=== PATIENT | female | born 1960 | race Caucasian/White ===

== ENCOUNTER 2020-02-26 08:26 | Emergency (ER) | payer MEDICAID ==
[~2020-02-26] VITALS: Ht 170.2 cm; Wt 72.7 kg
[~2020-02-26 08:26] MED LIST: NO HOME MEDS
[2020-02-26] MEDS ORDERED: thiamine 100mg tablet PO ONE (08:45)
[2020-02-26] MEDS ORDERED: magnesium oxide 400mg tablet PO ONE (08:45)
[2020-02-26] MEDS ORDERED: normal saline 1000ML IV soln IVB ONE (08:45)
[2020-02-26] MEDS ORDERED: acetaminophen 325mg tablet PO ONE (08:45)
[2020-02-26] MEDS ORDERED: phenobarbital inj 260 MG in normal saline 100ml IV soln 100 ML IV ONE (08:45)
[2020-02-26 09:01] LABS: BASOPHILS % (AUTO) 0.5 % (0-1); EOSINOPHILS # (AUTO) 0.1 X10'3 (0-0.9); EOSINOPHILS % (AUTO) 0.8 % (0-6); HEMOGLOBIN 12.6 g/dl (12.0-16.0); LYMPHOCYTES # (AUTO) 1.7 X10'3 (1.1-4.8); LYMPHOCYTES % (AUTO) 26.2 % (21-51); MEAN CORPUSCULAR HEMOGLOBIN 36.4 PG (27.0-31.0); MEAN CORPUSCULAR HGB CONC 34.1 g/dL (33.0-36.5); MEAN CORPUSCULAR VOLUME 106.9 FL (78-98); MEAN PLATELET VOLUME 8.9 FL (7.4-10.4); MONOCYTES # (AUTO) 0.7 X10'3 (0-0.9); MONOCYTES % (AUTO) 10.1 % (2-12); NEUTROPHILS # (AUTO) 4.1 X10'3 (1.8-7.7); NEUTROPHILS % (AUTO) 62.4 % (42-75); PLATELET COUNT 136 X10'3 (140-440); RED BLOOD COUNT 3.46 X10'6 (4.20-5.60); WHITE BLOOD COUNT 6.5 X10'3 (4.5-11.0)
[2020-02-26 09:07] LABS: ANION GAP 17 (8-16); BLOOD UREA NITROGEN 14 MG/DL (7-18); BUN/CREATININE RATIO 17.1 (6.6-38.0); CHLORIDE 96 MMOL/L (99-107); CREATININE 0.82 MG/DL (0.40-0.90); GLUCOSE 145 MG/DL (70-104); SODIUM 134 MMOL/L (135-145); TOTAL CARBON DIOXIDE 21.5 MMOL/L (24-32)
[2020-02-26 09:08] LABS: ALANINE AMINOTRANSFERASE 29 U/L (12-78); ALBUMIN 3.9 G/DL (3.4-5.0); ALBUMIN/GLOBULIN RATIO 1.1 (1.1-1.5); ALKALINE PHOSPHATASE 97 IU/L (46-116); ASPARTATE AMINO TRANSFERASE 62 U/L (10-37); BILIRUBIN,TOTAL 1.6 MG/DL (0.1-1.0); CALCIUM 8.5 MG/DL (8.5-10.1); ETHANOL < 0.010 GM/DL (0.0-0.010); TOTAL PROTEIN 7.6 G/DL (6.4-8.2); eGFR 72 ML/MIN
[2020-02-26 09:20] LABS: MAGNESIUM 0.7 MG/DL (1.5-2.4); POTASSIUM 2.8 MMOL/L (3.5-5.1)
[2020-02-26] MEDS ORDERED: phenobarbital inj 130 MG in normal saline 100ml IV soln 100 ML IV ONE (09:30)
[2020-02-26] MEDS ORDERED: potassium Cl 20 mEq SR tablet PO ONE (09:30)
[2020-02-26] MEDS: magnesium 2GM in 50ml NS 50 ML IV SCH ×2 (09:59→11:21)
[2020-02-26] MEDS: potassium Cl 10 mEq/100mL bag IV SCH ×2 (10:00→11:16)
[2020-02-26] MEDS ORDERED: ondansetron/PF 4mg/2ml inj IV ONE (10:20)
[2020-02-26] MEDS ORDERED: morphine 4 MG/ML inj SYRINge IV ONE (10:20)
--- NOTE | 2020-02-26 11:26 | NUR ---
Scanner in room not working. 2 patient identifiers and 2nd nurse, ZOEY Busch verified medications of Potassium and Magnesium.
[2020-02-26 13:45] VITALS: BP 158/98
== END 2020-02-26 13:47 | disposition home or self-care (01) ==
LOC: ER 08:26
DX: S01.512A Laceration without foreign body of oral cavity, initial encounter (principal); M25.512 Pain in left shoulder; F10.239 Alcohol dependence with withdrawal, unspecified; E87.6 Hypokalemia; R41.0 Disorientation, unspecified; E83.42 Hypomagnesemia; X58.XXXA Exposure to other specified factors, initial encounter; Y93.89 Activity, other specified; Y92.89 Other specified places as the place of occurrence of the external cause; Y99.8 Other external cause status; Y90.0 Blood alcohol level of less than 20 mg/100 ml
CPT/HCPCS: 36415; 70450; 73030; 80053; 80320; 83735; 85025; 93005; 96365; 96366; 96367; 96368; 96375; 99285; J2270; J2405; J2560; J3475; J3480; J7030

== ENCOUNTER 2020-11-18 15:13 | Emergency (ER) | payer MEDICAID, OTHER ==
[~2020-11-18] VITALS: Ht 165.1 cm; Wt 64.0 kg
[2020-11-18 15:17] VITALS: BP 140/74
[2020-11-18] MEDS ORDERED: HYDROcodone/acetaminophen 5mg/325mg tablet PO ONE (15:40)
[2020-11-18] MEDS ORDERED: ondansetron 4mg rapidly disintigrating tab PO ONE (15:40)
[2020-11-18] MEDS ORDERED: traMADol 50MG tablet PO ONE (16:00)
[2020-11-18] MEDS ORDERED: TRAM50TA2 PO (16:07)
== END 2020-11-18 16:24 | disposition home or self-care (01) ==
LOC: ER 15:14
DX: S42.294A Other nondisplaced fracture of upper end of right humerus, initial encounter for closed fracture (principal); M25.511 Pain in right shoulder; Z72.89 Other problems related to lifestyle; Z98.890 Other specified postprocedural states; Z79.899 Other long term (current) drug therapy; W19.XXXA Unspecified fall, initial encounter; Y93.89 Activity, other specified; Y92.89 Other specified places as the place of occurrence of the external cause; Y99.8 Other external cause status
CPT/HCPCS: 73030; 99283

== ENCOUNTER 2022-03-16 09:09 | Inpatient (IN) | payer MEDICAID, OTHER ==
[~2022-03-16] VITALS: Ht 170.2 cm; Wt 77.3 kg
[2022-03-16 10:07] LABS: BASOPHILS % (AUTO) 0.4 % (0-1); EOSINOPHILS # (AUTO) 0.1 X10'3 (0-0.9); EOSINOPHILS % (AUTO) 0.5 % (0-6); HEMATOCRIT 27.9 % (35.0-45.0); HEMOGLOBIN 9.4 g/dl (12.0-16.0); LYMPHOCYTES # (AUTO) 1.8 X10'3 (1.1-4.8); LYMPHOCYTES % (AUTO) 18.1 % (21-51); MEAN CORPUSCULAR HEMOGLOBIN 37.8 PG (27.0-31.0); MEAN CORPUSCULAR HGB CONC 33.8 g/dL (33.0-36.5); MONOCYTES # (AUTO) 0.5 X10'3 (0-0.9); MONOCYTES % (AUTO) 4.7 % (2-12); NEUTROPHILS # (AUTO) 7.7 X10'3 (1.8-7.7); NEUTROPHILS % (AUTO) 76.3 % (42-75); PLATELET COUNT 222 X10'3 (140-440); RED BLOOD COUNT 2.49 X10'6 (4.20-5.60); WHITE BLOOD COUNT 10.1 X10'3 (4.5-11.0)
[2022-03-16 10:30] LABS: ANISOCYTOSIS 2+; PLATELET ESTIMATE NORMAL
[2022-03-16 10:38] LABS: ALANINE AMINOTRANSFERASE 13 U/L (12-78); ALBUMIN 2.9 G/DL (3.4-5.0); ALBUMIN/GLOBULIN RATIO 0.8 (1.1-1.5); ALKALINE PHOSPHATASE 144 IU/L (46-116); ANION GAP 12 (8-16); ASPARTATE AMINO TRANSFERASE 30 U/L (10-37); BILIRUBIN,TOTAL 0.9 MG/DL (0.1-1.0); BLOOD UREA NITROGEN 13 MG/DL (7-18); BUN/CREATININE RATIO 17.8 (6.6-38.0); CALCIUM 8.1 MG/DL (8.5-10.1); CHLORIDE 98 MMOL/L (99-107); CREATININE 0.73 MG/DL (0.40-0.90); GLUCOSE 105 MG/DL (70-104); LIPASE 65 U/L (73-393); SODIUM 134 MMOL/L (135-145); TOTAL CARBON DIOXIDE 24.4 MMOL/L (24-32); TOTAL PROTEIN 6.5 G/DL (6.4-8.2); eGFR 82 ML/MIN
[2022-03-16] MEDS ORDERED: normal saline 1000ml 1,000 ML IV ONE (10:50)
[2022-03-16] MEDS ORDERED: LORazepam 2 mg/ml vial IV ONE (10:50)
[2022-03-16] MEDS ORDERED: normal saline 1000ML IV soln IVB ONE ×2 (10:50→14:05)
[2022-03-16] MEDS ORDERED: pantoprazole 40 MG vial IV ONE ×2 (10:50→14:05)
[2022-03-16] MEDS ORDERED: potassium CL 10mEq/100ml bag 100 ML IV ONE ×2 (10:50→14:05)
[2022-03-16] MEDS ORDERED: magnesium 2GM in 50ml NS 50 ML IV ONE ×2 (10:50→14:05)
[2022-03-16 11:05] LABS: MAGNESIUM 1.3 MG/DL (1.5-2.4)
[2022-03-16] MEDS: pantoprazole 40MG/NS 100ML BAG 100 ML IV SCH ×2 (12:25→20:54)
[2022-03-16 14:12] LABS: CLARITY,URINE SLIGHTLY CLOUDY (Clear); COLOR,URINE YELLOW (Yellow); GLUCOSE, URINE NEGATIVE (Neg); KETONES,URINE TRACE mg/dl (Neg); LEUKOCYTE ESTERASE ,URINE SMALL (Neg); NITRITES, URINE NEGATIVE (Neg); OCCULT BLOOD,URINE NEGATIVE (Neg); PROTEIN,URINE NEGATIVE (Neg); UA COLLECTION TYPE NON-SPECIFIED
[2022-03-16 14:15] LABS: URINE HCG NEGATIVE (NEG)
[2022-03-16 14:27] LABS: ETHANOL 0.061 GM/DL (0.0-0.010)
[2022-03-16 14:30] LABS: AMORPHOUS URATES 2+; BACTERIA,URINE 3+ /HPF (Neg); RBC,URINE 0-2 /HPF (0-2); SQUAMOUS EPITHELIAL CELL,UR FEW /LPF (FEW); WBC,URINE 0-4 /HPF (0-4)
[2022-03-16] MEDS ORDERED: magnesium hydroxide 30ml (MOM) UD suspension PO PRN (14:30)
[2022-03-16] MEDS ORDERED: magnesium 4gm in 100ml NS 100 ML IV PRN (14:30)
[2022-03-16] MEDS ORDERED: mag hydrox/Alum hydrox/simeth 30ml oral suspension PO PRN (14:30)
[2022-03-16] MEDS ORDERED: ondansetron/PF 4mg/2ml inj IV PRN (14:30)
[2022-03-16] MEDS ORDERED: haloperidol lactate 5mg/ml inj IM PRN (14:30)
[2022-03-16] MEDS ORDERED: magnesium Cl slow-release 64mg tablet PO PRN (14:30)
[2022-03-16] MEDS ORDERED: haloperidol 5mg tablet PO PRN (14:30)
[2022-03-16] MEDS ORDERED: magnesium 2GM in 50ml NS 50 ML IV PRN (14:30)
[2022-03-16] MEDS ORDERED: LORazepam 2 mg/ml vial IV PRN (14:30)
[2022-03-16] MEDS ORDERED: POTASSIUM BICARB 20meq eff tab 20 MEQ TABLET.EFF PO PRN (14:30)
[2022-03-16] MEDS ORDERED: potassium CL 10mEq/100ml bag 100 ML IV PRN (14:30)
[2022-03-16] MEDS ORDERED: dextrose 50%-water 50ml dispensing syringe IV PRN (14:30)
[2022-03-16] MEDS: normal saline 1000ml 1,000 ML IV SCH ×2 (15:26→20:50)
[2022-03-16 15:39] LABS: MAGNESIUM 2.2 MG/DL (1.5-2.4)
[2022-03-16] MEDS: cefTRIAXone 1g/NS 100ml IVPB 100 ML IV SCH (16:11)
[2022-03-16 18:23] LABS: URINE AMPHETAMINE SCREEN NEGATIVE (Neg); URINE BARBITUATE SCREEN NEGATIVE (Neg); URINE BENZODIAZEPINES SCREEN NEGATIVE (Neg); URINE CANNABINOID SCREEN NEGATIVE (Neg); URINE COCAINE SCREEN NEGATIVE (Neg); URINE METHADONE SCREEN NEGATIVE (Neg); URINE OPIATE SCREEN NEGATIVE (Neg); URINE PHENCYCLIDINE SCREEN NEGATIVE (Neg)
[2022-03-16] MEDS: K and/or MAG REPLACEMENT MC SCH (20:00)
[2022-03-16] MEDS: POTASSIUM BICARB 20meq eff tab 20 MEQ TABLET.EFF PO PRN (20:28)
[2022-03-16] MEDS: docusate sod 100mg capsule PO SCH (20:28)
--- NOTE | 2022-03-16 20:45 | NUR ---
Received report from Maribell GREER from ED. Patient came up to floor via wheelchair and able to transfer into bed. Bed placed in locked & low position, call light within reach.
[2022-03-16 20:50] VITALS: BP 121/90
[2022-03-16] MEDS: thiamine 100mg/ml 2ml inj. IV SCH (20:50)
[2022-03-16 22:00] VITALS: BP 97/58
[2022-03-17] MEDS: POTASSIUM BICARB 20meq eff tab 20 MEQ TABLET.EFF PO PRN ×2 (00:08→03:41)
--- NOTE | 2022-03-17 06:20 | NUR ---
Report given to Jefry GREER
--- NOTE | 2022-03-17 06:22 | NUR ---
Patient in room [facility]. I have received report from ZOEY Christianson and had the opportunity to ask questions and assume patient care.
[2022-03-17 06:51] VITALS: BP 128/74
[2022-03-17 06:57] LABS: BASOPHILS % (AUTO) 0.3 % (0-1); EOSINOPHILS % (AUTO) 0.7 % (0-6); HEMATOCRIT 25.2 % (35.0-45.0); HEMOGLOBIN 8.4 g/dl (12.0-16.0); LYMPHOCYTES # (AUTO) 1.4 X10'3 (1.1-4.8); LYMPHOCYTES % (AUTO) 21.2 % (21-51); MEAN CORPUSCULAR HEMOGLOBIN 37.1 PG (27.0-31.0); MEAN CORPUSCULAR HGB CONC 33.3 g/dL (33.0-36.5); MEAN CORPUSCULAR VOLUME 111.5 FL (78-98); MEAN PLATELET VOLUME 8.2 FL (7.4-10.4); MONOCYTES # (AUTO) 0.3 X10'3 (0-0.9); NEUTROPHILS # (AUTO) 4.9 X10'3 (1.8-7.7); NEUTROPHILS % (AUTO) 73.8 % (42-75); PLATELET COUNT 185 X10'3 (140-440); RED BLOOD COUNT 2.26 X10'6 (4.20-5.60); RED CELL DISTRIBUTION WIDTH 18.9 % (11.5-14.5); WHITE BLOOD COUNT 6.6 X10'3 (4.5-11.0)
[2022-03-17] MEDS: thiamine 100mg/ml 2ml inj. IV SCH ×2 (07:03→13:07)
[2022-03-17] MEDS: docusate sod 100mg capsule PO SCH (07:03)
[2022-03-17] MEDS: pantoprazole 40MG/NS 100ML BAG 100 ML IV SCH ×2 (07:04→12:25)
[2022-03-17 07:08] LABS: ALANINE AMINOTRANSFERASE 12 U/L (12-78); ALBUMIN 2.5 G/DL (3.4-5.0); ALBUMIN/GLOBULIN RATIO 0.8 (1.1-1.5); ALKALINE PHOSPHATASE 126 IU/L (46-116); ANION GAP 2 (8-16); ASPARTATE AMINO TRANSFERASE 31 U/L (10-37); BILIRUBIN,TOTAL 0.8 MG/DL (0.1-1.0); BLOOD UREA NITROGEN 12 MG/DL (7-18); BUN/CREATININE RATIO 17.1 (6.6-38.0); CALCIUM 7.9 MG/DL (8.5-10.1); CHLORIDE 103 MMOL/L (99-107); GLUCOSE 98 MG/DL (70-104); MAGNESIUM 1.9 MG/DL (1.5-2.4); POTASSIUM 4.7 MMOL/L (3.5-5.1); SODIUM 132 MMOL/L (135-145); TOTAL CARBON DIOXIDE 26.8 MMOL/L (24-32); TOTAL PROTEIN 5.8 G/DL (6.4-8.2); eGFR 86 ML/MIN
[2022-03-17] MEDS: cefTRIAXone 1g/NS 100ml IVPB 100 ML IV SCH (07:32)
[2022-03-17] MEDS ORDERED: enoxaparin 40mg/0.4ml syringe SUBCUT SCH (08:00)
[2022-03-17] MEDS: K and/or MAG REPLACEMENT MC SCH (08:00)
[2022-03-17] MEDS ORDERED: folic acid 1mg/0.2ml inj IV SCH (08:00)
--- NOTE | 2022-03-17 09:56 | NUR ---
Dr. Roberts in to see patient. Patient reported to Dr. Roberts she had a BM. Patient reports she had a BM this am. Addendum: 03/17/22 at 0957 by Jefry Baron RN and refusing MOM.
[2022-03-17] MEDS ORDERED: magnesium hydroxide 30ml (MOM) UD suspension PO ONE (10:15)
[2022-03-17 10:32] VITALS: BP 96/68
[2022-03-17 10:39] VITALS: BP 105/68
--- NOTE | 2022-03-17 11:07 | NUR ---
Met with patient in regards to Alcohol use and to see if patient wanted resources for treatment options. Patient declined resources.
[2022-03-17 12:49] LABS: HEMATOCRIT 23.7 % (35.0-45.0); HEMOGLOBIN 7.9 g/dl (12.0-16.0); MEAN CORPUSCULAR HEMOGLOBIN 36.6 PG (27.0-31.0); MEAN CORPUSCULAR HGB CONC 33.1 g/dL (33.0-36.5); MEAN CORPUSCULAR VOLUME 110.3 FL (78-98); MEAN PLATELET VOLUME 8.3 FL (7.4-10.4); PLATELET COUNT 168 X10'3 (140-440); RED BLOOD COUNT 2.15 X10'6 (4.20-5.60); RED CELL DISTRIBUTION WIDTH 19.3 % (11.5-14.5); WHITE BLOOD COUNT 6.5 X10'3 (4.5-11.0)
[2022-03-17 16:24] LABS: OCCULT BLOOD STOOL NEGATIVE (Neg)
--- NOTE | 2022-03-17 16:35 | NUR ---
PAGER ID: [phone] MESSAGE: [id number]- Ashley Nicole- Occult Stool Neg. Wanting to DC. Thank you- Jefry [phone]
[2022-03-17] MEDS ORDERED: CEFD300C3 PO (16:43)
[2022-03-17] MEDS ORDERED: FOLI1TAB27 PO (16:43)
[2022-03-17] MEDS ORDERED: PANT-47 PO (16:43)
[2022-03-17] MEDS ORDERED: THIA100T70 PO (16:43)
[2022-03-17] MEDS ORDERED: DOCU-148 PO (16:43)
--- NOTE | 2022-03-17 17:36 | NUR ---
Discussed with patient discharge teaching and prescriptions. Patient verbalizes understanding of teaching and states she did not have any questions. Patient discharged with all personal belongings. Patient escorted out in wheelchair and stated that she wanted to wait outside for her ride.
[2022-03-18] MEDS ORDERED: LORazepam 1 MG tablet PO PRN (14:30)
[2022-03-18] MEDS ORDERED: LORazepam 2 mg/ml vial IV PRN (14:30)
[2022-03-20] MEDS ORDERED: LORazepam 1 MG tablet PO PRN (14:30)
[2022-03-20] MEDS ORDERED: LORazepam 2 mg/ml vial IV PRN (14:30)
[2022-03-21] MEDS ORDERED: folic acid 1mg tablet PO SCH (08:00)
[2022-03-21] MEDS ORDERED: thiamine 100mg tablet PO SCH (08:00)
== END 2022-03-17 17:30 | disposition home or self-care (01) | DRG 241 ==
LOC: ER 09:09 → ED HOLD 14:32 → ORTHO 4S 20:45
PROVIDERS: ADMIT Family Medicine; ATTEND Family Medicine
DX: K29.20 Alcoholic gastritis without bleeding (principal); D63.8 Anemia in other chronic diseases classified elsewhere; E83.42 Hypomagnesemia; E87.6 Hypokalemia; F10.229 Alcohol dependence with intoxication, unspecified; F17.210 Nicotine dependence, cigarettes, uncomplicated; K59.00 Constipation, unspecified; N39.0 Urinary tract infection, site not specified; Y90.3 Blood alcohol level of 60-79 mg/100 ml; Z98.51 Tubal ligation status; Z71.41 Alcohol abuse counseling and surveillance of alcoholic
CPT/HCPCS: 36415; 80053; 80305; 80320; 81001; 81025; 82272; 82948; 83690; 83735; 84132; 85008; 85025; 85027; 85610; 87077; 87081; 87088; 87186; 96361; 96365; 96366; 96368; 99285; C9113; G0378; J0696; J1650; J2060; J3411; J3475; J3480; J3490; J7030